=== PATIENT | male | born 1960 | race African-American/Black ===

== ENCOUNTER 2017-10-12 16:11 | Inpatient (IN) | payer MEDICAID ==
[~2017-10-12] VITALS: Ht 177.8 cm; Wt 57.2 kg
[~2017-10-12 16:11] MED LIST: AMLO5TAB88 PO; ASPI-1158 PO; FURO10VI3 PO; KEPP500 PO; METO-539 PO; P20 PO; PHEN100C4 PO; TC1C15 TOP
[2017-10-12 16:50] LABS: HEMATOCRIT. 29.2 % (42.0-52.0); HEMOGLOBIN. 9.7 g/dL (14.0-18.0); MEAN CORPUSCULAR HEMOGLOBIN 30.3 pg (28.0-32.0); MEAN PLATELET VOLUME 7.6 fl (7.4-10.4); PLATELET 119 x1000/uL (130-400); RED BLOOD CELL COUNT 3.21 mill/uL (4.7-6.1); RED CELL DISTRIBUTION WIDTH 18.2 % (11.6-14.6)
[2017-10-12 16:53] LABS: CHLORIDE 101 mEq/L (98-107)
[2017-10-12 16:56] LABS: INR 1.1; PARTIAL THROMBOPLASTIN TIME 34.8 sec (23.4-31.0); PROTHROMBIN TIME 11.9 sec (9.4-11.6)
[2017-10-12 16:58] LABS: ETHANOL BLOOD < 10 mg/dL
[2017-10-12 17:02] LABS: CREATINE KINASE 50 IU/L (39-308)
[2017-10-12 17:03] LABS: CREATINE KINASE MB FRACTION 1.9 ng/mL (0.5-3.6)
[2017-10-12 17:08] LABS: PLATELET ESTIMATE DECREASED
[2017-10-12] MEDS ORDERED: LEVETIRACETAM 500MG PREMIX 100 ML IV ONE (17:15)
[2017-10-12 17:52] LABS: *AMPHETAMINES SCREEN URINE NEGATIVE (NEGATIVE); *BARBITURATES SCREEN URINE PRESUMTIVE POSITIVE (NEGATIVE); *BENZODIAZEPINES SCREEN URINE NEGATIVE (NEGATIVE); *COCAINE SCREEN URINE NEGATIVE (NEGATIVE)
[2017-10-12 17:53] LABS: CANNABINOID URINE SCREEN PRESUMTIVE POSITIVE (NEGATIVE); METHADONE URINE SCREEN NEGATIVE (NEGATIVE); OPIATES URINE SCREEN NEGATIVE (NEGATIVE); PHENCYCLIDINE URINE SCREEN NEGATIVE (NEGATIVE)
[2017-10-12] MEDS ORDERED: FUROSEMIDE 20MG/2ML VIAL IVP ONE (18:45)
[2017-10-12 19:03] LABS: PHENOBARBITAL 3.7 ug/mL (15.0-40.0)
[2017-10-12 19:05] LABS: CARBAMAZEPINE < 0.5 ug/mL (4-12); VALPROIC ACID < 3.0 ug/mL (50-100)
[2017-10-12 20:00] VITALS: BP_SYST 133; BP_SYST 135; BP_DIAS 89; BP_DIAS 99
[2017-10-12 22:30] VITALS: BP 132/98
[2017-10-13] VITALS: BP 135/89
[2017-10-13] MEDS ORDERED: HYDROCODONE/ACETAMINOPHEN 5/325MG TABLET PO PRN (01:15)
[2017-10-13 04:00] VITALS: BP 134/97
[2017-10-13] MEDS ORDERED: PHENYTOIN SODIUM EXTENDED 100MG CAPSULE PO SCH ×2 (06:00→09:00)
[2017-10-13] MEDS: SODIUM CHLORIDE 0.9% INJ 3ML FLUSH IVF SCH ×4 (06:03→22:39)
[2017-10-13 08:00] VITALS: BP 122/81
[2017-10-13] MEDS: LEVETIRACETAM 500MG TABLET PO SCH ×2 (08:55→22:32)
[2017-10-13] MEDS: METOPROLOL TARTRATE 50MG TABLET PO SCH ×2 (08:55→21:00)
[2017-10-13] MEDS: AMLODIPINE 10MG TABLET PO SCH ×2 (08:55→21:00)
[2017-10-13] MEDS: ASPIRIN 81MG TABLET PO SCH (08:56)
[2017-10-13] MEDS ORDERED: AMLODIPINE 10MG TABLET PO ONE (09:00)
[2017-10-13 12:00] VITALS: BP 95/70
[2017-10-13] MEDS ORDERED: PHENYTOIN SODIUM 1,000 MG in SODIUM CHLORIDE 0.9% 100 ML IV SCH (12:00)
[2017-10-13] MEDS: FUROSEMIDE 40MG TABLET PO SCH (13:41)
[2017-10-13] MEDS ORDERED: PHENYTOIN SODIUM EXTENDED 100MG CAPSULE PO NR (15:30)
[2017-10-13 16:00] VITALS: BP 95/66
[2017-10-13] MEDS: ENOXAPARIN 60MG/0.6ML SYR SUBCUT SCH (17:18)
[2017-10-13 19:56] VITALS: BP 97/68
[2017-10-13] MEDS: TRIAMCINOLONE ACETONIDE 0.1% CREAM 15GM TOP SCH (21:00)
[2017-10-13] MEDS: PHENYTOIN SODIUM EXTENDED 100MG CAPSULE PO SCH (22:32)
[2017-10-14 00:05] VITALS: BP 98/69
[2017-10-14 04:00] VITALS: BP 99/71
[2017-10-14] MEDS: ENOXAPARIN 60MG/0.6ML SYR SUBCUT SCH ×2 (05:46→17:46)
[2017-10-14 07:05] LABS: CHLORIDE 102 mEq/L (98-107)
[2017-10-14 07:24] LABS: HEMATOCRIT 27.6 % (42.0-52.0); HEMOGLOBIN 9.3 g/dL (14.0-18.0); MEAN CORPUSCULAR HEMOGLOBIN 30.6 pg (28.0-32.0); PLATELET 106 x1000/uL (130-400); RED BLOOD CELL COUNT 3.04 mill/uL (4.7-6.1); RED CELL DISTRIBUTION WIDTH 17.9 % (11.6-14.6)
[2017-10-14 08:00] VITALS: BP 105/78
[2017-10-14] MEDS: ASPIRIN 81MG TABLET PO SCH (09:23)
[2017-10-14] MEDS: AMLODIPINE 10MG TABLET PO SCH ×2 (09:23→21:00)
[2017-10-14] MEDS: FUROSEMIDE 40MG TABLET PO SCH (09:23)
[2017-10-14] MEDS: LEVETIRACETAM 500MG TABLET PO SCH ×2 (09:23→21:30)
[2017-10-14] MEDS: METOPROLOL TARTRATE 50MG TABLET PO SCH ×2 (09:25→21:00)
[2017-10-14] MEDS: MUPIROCIN 2% OINT 22GM TOP SCH (09:26)
[2017-10-14 12:00] VITALS: BP 94/65
[2017-10-14] MEDS ORDERED: PHENYTOIN SODIUM EXTENDED 100MG CAPSULE PO NR ×2 (12:30→16:30)
[2017-10-14] MEDS ORDERED: PHENYTOIN SODIUM 800 MG in SODIUM CHLORIDE 0.9% 100 ML IV NR (12:30)
[2017-10-14] MEDS: SODIUM CHLORIDE 0.9% INJ 3ML FLUSH IVF SCH ×2 (14:00→21:46)
[2017-10-14 16:00] VITALS: BP 98/75
[2017-10-14 20:00] VITALS: BP 105/69
[2017-10-14] MEDS: TRIAMCINOLONE ACETONIDE 0.1% CREAM 15GM TOP SCH (21:00)
[2017-10-14] MEDS: PHENYTOIN SODIUM EXTENDED 100MG CAPSULE PO SCH (21:31)
[2017-10-15] VITALS: BP 98/60
[2017-10-15 04:00] VITALS: BP 106/76
[2017-10-15] MEDS: ENOXAPARIN 60MG/0.6ML SYR SUBCUT SCH ×2 (06:18→18:02)
[2017-10-15] MEDS: SODIUM CHLORIDE 0.9% INJ 3ML FLUSH IVF SCH (06:18)
[2017-10-15 08:00] VITALS: BP 106/69
[2017-10-15] MEDS: LEVETIRACETAM 500MG TABLET PO SCH (08:35)
[2017-10-15] MEDS: FUROSEMIDE 40MG TABLET PO SCH (08:35)
[2017-10-15] MEDS: MUPIROCIN 2% OINT 22GM TOP SCH (08:36)
[2017-10-15] MEDS: METOPROLOL TARTRATE 50MG TABLET PO SCH (08:36)
[2017-10-15] MEDS: AMLODIPINE 10MG TABLET PO SCH (08:36)
[2017-10-15] MEDS: ASPIRIN 81MG TABLET PO SCH (08:36)
[2017-10-15 12:00] VITALS: BP_SYST 105; BP_SYST 110; BP_DIAS 77; BP_DIAS 78
[2017-10-15 15:49] VITALS: BP 105/79
[2017-10-15 17:41] VITALS: BP 105/78
== END 2017-10-15 19:18 | disposition home health service (06) | DRG 53 ==
LOC: ER 16:11 → 7WST 17:20 → EDBEDREQ 17:23 → ENRESERV 19:59
PROVIDERS: ADMIT Internal Medicine; ATTEND Internal Medicine
DX: G40.909 Epilepsy, unspecified, not intractable, without status epilepticus (principal); E43 Unspecified severe protein-calorie malnutrition; I50.23 Acute on chronic systolic (congestive) heart failure; D61.818 Other pancytopenia; I11.0 Hypertensive heart disease with heart failure; E87.1 Hypo-osmolality and hyponatremia; I25.118 Atherosclerotic heart disease of native coronary artery with other forms of angina pectoris; F12.90 Cannabis use, unspecified, uncomplicated; I25.5 Ischemic cardiomyopathy; L97.919 Non-pressure chronic ulcer of unspecified part of right lower leg with unspecified severity; L97.929 Non-pressure chronic ulcer of unspecified part of left lower leg with unspecified severity; M06.9 Rheumatoid arthritis, unspecified; R32 Unspecified urinary incontinence; Z86.718 Personal history of other venous thrombosis and embolism; Z86.73 Personal history of transient ischemic attack (TIA), and cerebral infarction without residual deficits; Z87.891 Personal history of nicotine dependence; Z91.19 Patient's noncompliance with other medical treatment and regimen; I25.2 Old myocardial infarction; Z95.5 Presence of coronary angioplasty implant and graft; Z88.0 Allergy status to penicillin; Z79.899 Other long term (current) drug therapy; Z79.82 Long term (current) use of aspirin; Z68.1 Body mass index [BMI] 19.9 or less, adult
CPT/HCPCS: 36415; 70450; 70551; 71045; 72125; 80048; 80053; 80156; 80165; 80184; 80185; 80305; 82550; 82553; 83690; 83735; 83880; 84484; 85025; 85027; 85610; 85730; 93005; 93970; 96365; 96375; 97162; 99291; C1893; G0482; J1165; J1650; J1940; J1953; J7040; J7050; A4315